=== PATIENT | female | born 1985 | race African-American/Black ===

== ENCOUNTER 2023-08-30 16:08 | Emergency (ER) | payer MEDICAID, OTHER ==
[~2023-08-30] VITALS: Ht 162.6 cm; Wt 67.8 kg
[2023-08-30 16:46] LABS: Urine Bacteria None Seen /hpf (None Seen)
[2023-08-30 17:17] LABS: Urine Blood 2+ /uL (Negative); Urine Clarity Clear (Clear); Urine Color Yellow (Yellow); Urine Mucus FEW (None Seen); Urine Protein, UAD TRACE (Negative); Urine Specific Gravity 1.025 (1.001-1.035); Urine Urobilinogen Normal (Negative); Urine WBC 1 /hpf (0 - 5)
[2023-08-30 17:24] VITALS: BP 102/65; PULSE 92; RESP 17; TEMP 98.2; O2SAT 98
[2023-08-30] MEDS ORDERED: NITR-52 PO (19:27)
== END 2023-08-30 19:53 | disposition home or self-care (01) ==
LOC: ER 16:13
DX: N39.0 Urinary tract infection, site not specified (principal)
CPT/HCPCS: 81001; 81025

== ENCOUNTER 2024-02-17 22:37 | Emergency (ER) | payer MEDICAID ==
[~2024-02-17] VITALS: Ht 162.6 cm; Wt 77.2 kg
[~2024-02-17 22:37] MED LIST: NITR-52 PO
[2024-02-17 23:01] VITALS: BP 120/82; PULSE 81; RESP 16; O2SAT 98
[2024-02-18] MEDS ORDERED: DOXY100C4 PO (03:07)
--- NOTE | 2024-02-18 03:07 | ED.PDOC ---
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 Patient reports history of abscess since 2018. Notes has been dealing with it since states Sitz baths have been helping she notes has never had it drained has never follow up with clinical education manager. Denies fevers, chills rates pain 10/10 on pain scale pulsating type pain. Take [id number] ibuprofen with some relief. She denies nausea, vomiting, vaginal discharge pelvic pain or abdominal pain. Chief Complaint: Abscess Time Seen by MD: 22:46 Primary Care Provider: IN NEPTUNE History of Present Illness: Nurses Notes, Medications, Allergies Allergies: Coded Allergies: NO KNOWN ALLERGIES (Unverified , 08/30/23) Home Meds Active Scripts Doxycycline Hyclate (Doxycycline Hyclate) 100 Mg Cap, 1 CAP PO BID for 7 Days, #14 CAP Prov:NATI MOSS TIRE BUILDER 02/18/24 Nitrofurantoin (Nitrofurantoin) 100 Mg Cap, 1 CAP PO BID for 5 Days, #10 CAP Prov:LINO ALELN PAC 08/30/23 Information Source: Patient Mode of Arrival: Ambulatory Severity: Mild Past Medical History PAST MEDICAL HISTORY: Denies Surgical History: Denies all surgeries FRONT END LOADER DRIVER History: No Pertinent FRONT END LOADER DRIVER History Constitutional: denies: chills, diaphoresis, fatigue, fever, malaise, sweats, weakness, others EENTM: denies: blurred vision, double vision, ear bleeding, ear discharge, ear drainage, ear pain, ear ringing, eye pain, eye redness, hearing loss, mouth pain, mouth swelling, nasal discharge, nose bleeding, nose congestion, nose pain, photophobia, tearing, throat pain, throat swelling, voice changes, others Respiratory: denies: cough, hemoptysis, orthopnea, SOB at rest, shortness of breath, SOB with excertion, stridor, wheezing, others Cardiovascular: denies: chest pain, dizzy spells, diaphoresis, Dyspnea on exertion, edema, irregular heart beat, left arm pain, lightheadedness, palpitations, PND, syncope, others Gastrointestinal: denies: abdomen distended, abdominal pain, blood streaked bowels, constipated, diarrhea, dysphagia, difficulty swallowing, hematemesis, melena, nausea, poor appetite, poor fluid intake, rectal bleeding, rectal pain, vomiting, others Genitourinary: denies: abnormal vagina bleeding, burning, dyspareunia, dysuria, flank pain, frequency, hematuria, incontinence, pain, , vagina disch arge, urgency, others Neurological: denies: dizziness, fainting, headache, left sided numbness, left sided weakness, numbness, paresthesia, pre-existing deficit, right sided numbness, right sided weakness, seizure, speech problems, tingling, tremors, weakness, others Musculoskeletal: denies: back pain, gout, joint pain, joint swelling, muscle pain, muscle stiffness, neck pain, others Integumetry: reports: others (Right labia lump); denies: bruises, change in color, change in hair/nails, dryness, laceration, lesions, lumps, rash, wounds Hematologic/Lymphatic: denies: anemia, blood clots, easy bleeding, easy bruising, swollen glands, others Endocrine: denies: excessive hunger, excessive sweating, excessive thirst, excessive urination, flushing, intolerance to cold, intolerance to heat, unexplained weight gain, unexplained weight loss, others Psychiatric: denies: anxiety, bipolar disorder, depression, hopeless, panic disorder, schizophrenia, sleepless, suicidal, others Physical Exam General Appearance: No Apparent Distress, Normal HEENT: Pharynx Normal Neck: Full Range of Motion, Non-Tender Respiratory: Lungs Clear, No Respiratory Distress, Normal Breath Sounds Cardiovascular: No Murmur, Normal Peripheral Pulses, Regular Rate/Rhythm Breast Exam: Deferred Gastrointestinal: No Organomegaly, Non Tender, No Pulsatile Mass, Normal Bowel Sounds, Soft Genitalia: Deferred Pelvic: Other (Golf ball size abscess right groin fluctuant and tender with surrounding erythema without streaking no noted drainage.) Rectal: Deferred Extremities: No calf tenderness, Normal capillary refill, Normal inspection, Normal range of motion, Non-tender, No pedal edema Musculoskeletal : Apperance: Normal Neurologic: Alert, sap bpc architect II-XII nml as Tested, No Motor Deficits, Normal Affect, Normal Mood, No Sensory Deficits Cerebellar Function: Normal Reflexes: Normal Skin: Dry, Normal Color, Warm Lymphatic: No Adenopathy Was a procedure done? Was a procedure done?: Yes Sedation Sedation?: No Informed consent obtained: Yes Incision and Drainage Incision and Drainage: Abscess Location Right groin Preparation: Betadine Incision and Wound: Pus, Blood Informed consent obtained: Yes Risks/benefits/alt described: Yes Notes Patient tolerated well with minimal blood loss take pain and pressure. Differential Diagnosis (INTG) Differential Diagnosis: Cellulitis, Hematoma X-Ray, Labs, Meds, VS Vital Signs Date Time Temp Pulse Resp B/P (MAP) Pulse Ox O2 Delivery O2 Flow Rate FiO2 02/17/24 23:01 98.0 81 16 120/82 (95) 98 X-Ray, Labs, Meds, VS Comment See procedure note. We will trial doxycycline twice daily x7 days. Advised patient to continue with the Sitz baths since it has been helping hand encouraging drainage. Advised to follow up with her PCP in 2-3 days or urgent care or back here in the ER for wound re-evaluation. [id number] Tylenol or Motrin as needed for pain per labeled dosing instructions. ER return precautions given patient indicated understanding agrees with discharge plan of care. Time of 1ST Reevaluation: 03:08 Reevaluation 1ST: Improved Patient Education/Counseling: Diagnosis, Treatment, Prognosis, Need For Follow Up Family Education/Counseling: No Family Present Departure 1 Departure Time of Disposition: 03:20 Impression: Primary Impression: Abscess Disposition: 01 HOME / SELF CARE / HOMELESS Condition: Stable e-Prescriptions Doxycycline Hyclate (Doxycycline Hyclate) 100 Mg Cap 1 CAP PO BID for 7 Days, #14 CAP Prov: NATI MOSS 02/18/24 Discharged With: Self Critical Care Note Critical Care Time?: No Stability Stability form required: No NATI MOSS Feb 18, 2024 03:07
== END 2024-02-18 03:39 | disposition home or self-care (01) ==
LOC: ER 22:37
DX: N76.0 Acute vaginitis (principal); Z79.899 Other long term (current) drug therapy
CPT/HCPCS: 10060